=== PATIENT | female | born 1955 | race African-American/Black ===

== ENCOUNTER 2016-09-29 01:31 | Emergency (ER) | payer MEDICARE, MEDICAID ==
[~2016-09-29] VITALS: Ht 167.6 cm; Wt 116.6 kg
[~2016-09-29 01:31] MED LIST: CATAPRES0.1 MG ORAL; DILTIAZEM 24HR120 M1 ORAL; IBUPROFEN600 MG ORAL; NAPHCON-A EYE D15 ML OP; NORCO 5-325 TA1 EACH ORAL; TRIAMTERENE-HC1 EAC6 ORAL
[2016-09-29 01:45] VITALS: BP 154/91
[2016-09-29 02:45] LABS: EOSINOPHILS % (AUTO) 1.4 % (0.0-3.0); LYMPHOCYTES % (AUTO) 16.1 % (20.0-45.0); MEAN CORPUSCULAR HEMOGLOBIN 28.7 PG (27.0-31.0); MEAN CORPUSCULAR HGB CONC 32.1 G/DL (32.0-36.0); MEAN CORPUSCULAR VOLUME 89 FL (80-99); MEAN PLATELET VOLUME 7.2 FL (6.5-10.1); MONOCYTES % (AUTO) 4.7 % (1.0-10.0); NEUTROPHILS % (AUTO) 76.8 % (45.0-75.0); PLATELET COUNT 349 K/UL (150-450); RED BLOOD COUNT 4.68 M/UL (4.20-5.40); RED CELL DISTRIBUTION WIDTH 13.2 % (11.6-14.8); WHITE BLOOD COUNT 10.7 K/UL (4.8-10.8)
[2016-09-29 02:53] LABS: APPEARANCE,URINE CLEAR; KETONES,URINE NEGATIVE (NEGATIVE); NITRITE,URINE NEGATIVE (NEGATIVE); PH,URINE 5 (4.5-8.0); PROTEIN,URINE 2+ (NEGATIVE); UROBILINOGEN,URINE NORMAL MG/DL (0.0-1.0)
[2016-09-29] MEDS ORDERED: DILTIAZEM HCL120 MG PO (03:00)
[2016-09-29] MEDS ORDERED: TENORMIN25 MG ORAL (03:00)
[2016-09-29 03:03] LABS: ANION GAP 13 (5-15); BACTERIA,URINE FEW /HPF; CALCIUM 9.2 mg/dL (8.6-10.2); CARBON DIOXIDE 27 mEQ/L (20-30); CHLORIDE 100 mEQ/L (98-107); CREATININE 0.9 mg/dL (0.5-0.9); GLOMERULAR FILTRATION RATE > 60 mL/min (>60); HEMOLYSIS 5; LEUKOCYTE ESTERASE ,URINE 1+ (NEGATIVE); POTASSIUM 3.2 mEQ/L (3.4-4.9); RBC,URINE 0-2 /HPF (0 - 2); SODIUM 140 mEQ/L (135-145); SQUAMOUS EPITHELIAL CELL,UR FEW /LPF (NONE/OCC)
[2016-09-29] MEDS ORDERED: ATENOLOL25 MG ORAL (03:23)
[2016-09-29] MEDS ORDERED: LOSARTAN POTASS50 MG ORAL (03:23)
--- NOTE | 2016-09-29 03:23 | Emergency Room Report ---
History of Present Illness General Chief Complaint: Hypertension Source: Patient Present Illness HPI Is a 61-year-old female with history hypertension. She was on clonidine, atenolol, diltiazem. Her new doctor tell her that she did not take clonidine atenolol at the same time. She stopped her clonidine. This occurred last week. She presents today because her blood pressure was high. She could not measured at home. She went to the grocery and it was elevated. She came here. She denies any symptoms. No headache. No nausea no vomiting. no chest pain. Allergies: Coded Allergies: AMOXICILLIN (Verified Allergy, 07/27/13) Patient History Past Medical History: see triage record, old chart reviewed, HTN Past Surgical History: other Pertinent Family History: none Social History: Denies: smoking Last Menstrual Period: Menopause Now: No Immunizations: other Reviewed Nursing Documentation: PMH: Agreed, PSxH: Agreed Nursing Documentation-PMH Past Medical History: No History, Except For Hx Hypertension: Yes Hx Diabetes: Yes - Pre-diabetic Review of Systems Eye: Denies: blurred vision, eye pain ENT: Denies: ear pain, nose congestion, throat swelling Respiratory: Denies: cough, shortness of breath Cardiovascular: Denies: chest pain, palpitations Gastrointestinal: Denies: abdominal pain, diarrhea, nausea, vomiting Musculoskeletal: Denies: back pain, joint pain Skin: Denies: rash Neurological: Denies: headache, numbness Endocrine: Denies: increased thirst, increased urine Hematologic/Lymphatic: Denies: easy bruising All Other Systems: negative except mentioned in HPI Physical Exam Vital Signs Date Time Temp Pulse Resp B/P Pulse Ox O2 Delivery O2 Flow Rate FiO2 09/29/16 01:40 97.9 92 15 188/116 99 Room Air vitals with hypertension Sp02 EP Interpretation: reviewed, normal General Appearance: well appearing, no apparent distress, alert Head: normocephalic, atraumatic Eyes: bilateral eye EOMI, bilateral eye PERRL ENT: hearing grossly normal, normal pharynx Neck: full range of motion, supple, no meningismus Respiratory: chest non-tender, lungs clear, normal breath sounds Cardiovascular #1: regular rate, rhythm, no murmur Gastrointestinal: normal bowel sounds, non tender, no mass, no organomegaly, no bruit, non-distended Musculoskeletal: back normal, gait/station normal, normal range of motion Psychiatric: mood/affect normal Skin: warm/dry Medical Decision Making Diagnostic Impression: Primary Impression: Hypertension Qualified Codes: I10 - Essential (primary) hypertension Additional Impression: Proteinuria Qualified Codes: R80.9 - Proteinuria, unspecified ER Course Patient presents with hypertension. With a larger cuff her blood pressures been running systolic 1 5160 year. She is asymptomatic. She does have proteinuria and would benefit from an KHIA inhibitor or an ARBs. Her heart rate was in the 60s so we'll not increase the beta burak. We'll discharge home. Lab Results Impression labs unremarkable Last Vital Signs Date Time Temp Pulse Resp B/P Pulse Ox O2 Delivery O2 Flow Rate FiO2 09/29/16 01:50 71 16 Room Air 09/29/16 01:45 97.9 154/91 99 Status: improved Disposition: HOME, SELF-CARE Condition: Stable Scripts Losartan Potassium* (LOSARTAN POTASSIUM*) 50 Mg Tablet 50 MG ORAL DAILY, #90 TAB Prov: MANJIT WOODARD M.D. 09/29/16 Atenolol* (TENORMIN*) 25 Mg Tablet 25 MG ORAL DAILY, #90 TAB Prov: MANJIT WOODARD M.D. 09/29/16 Referrals: NON PHYSICIAN (PCP) Patient Instructions: High Blood Pressure (Hypertension) Additional Instructions: Followup with your DrCj within a week. Return if symptom worsen. MANJIT WOODARD M.D. Sep 29, 2016 03:23
[2016-09-29 03:45] VITALS: BP 151/88
[2016-09-29 03:56] VITALS: BP 151/88
== END 2016-09-29 03:59 | disposition home or self-care (01) ==
LOC: EMR 02:02
DX: I10 Essential (primary) hypertension (principal); R80.9 Proteinuria, unspecified; Z79.899 Other long term (current) drug therapy; Z88.0 Allergy status to penicillin
CPT/HCPCS: 36415; 80048; 81001; 85025; 99284

== ENCOUNTER 2016-10-05 03:17 | Emergency (ER) | payer MEDICARE, MEDICAID ==
[~2016-10-05] VITALS: Ht 167.6 cm; Wt 117.5 kg
[~2016-10-05 03:17] MED LIST changes: +ATENOLOL25 MG ORAL; +DILTIAZEM HCL120 MG PO; +LOSARTAN POTASS50 MG ORAL; +TENORMIN25 MG ORAL
[2016-10-05] MEDS ORDERED: NAPROXEN500 M2 ORAL (03:30)
--- NOTE | 2016-10-05 03:37 | Emergency Room Report ---
History of Present Illness General Chief Complaint: Hypertension Source: Patient Present Illness HPI This is a 61-year-old female with history hypertension. I saw her last week and labs were normal. She was started on losartan 50 mg. Throat continue with her atenolol 25 mg and diltiazem 240 mg. She present today with chief complaint of elevated blood pressure. Systolic blood pressure was 190. She'll be took half of her atenolol today. Denies any fever chills denies any nausea vomiting. The demented better nothing made it worse. No headache. No nausea no vomiting. No chest pain. No short of breath. No hematuria. Allergies: Coded Allergies: AMOXICILLIN (Verified Allergy, 07/27/13) Patient History Past Medical History: see triage record, old chart reviewed, HTN Past Surgical History: other Pertinent Family History: none Social History: Denies: smoking Last Menstrual Period: NOT ANYMORE Now: No Immunizations: other Reviewed Nursing Documentation: PMH: Agreed, PSxH: Agreed Nursing Documentation-PMH Hx Hypertension: Yes Hx Diabetes: Yes - Pre-diabetic Review of Systems Eye: Denies: blurred vision, eye pain ENT: Denies: ear pain, nose congestion, throat swelling Respiratory: Denies: cough, shortness of breath Cardiovascular: Denies: chest pain, palpitations Gastrointestinal: Denies: abdominal pain, diarrhea, nausea, vomiting Musculoskeletal: Denies: back pain, joint pain Skin: Denies: rash Neurological: Denies: headache, numbness Endocrine: Denies: increased thirst, increased urine Hematologic/Lymphatic: Denies: easy bruising All Other Systems: negative except mentioned in HPI Physical Exam Vital Signs Date Time Temp Pulse Resp B/P Pulse Ox O2 Delivery O2 Flow Rate FiO2 10/05/16 03:22 98.2 70 18 177/111 98 Room Air vitals with htn Sp02 EP Interpretation: reviewed, normal General Appearance: well appearing, no apparent distress, alert Head: normocephalic, atraumatic Eyes: bilateral eye EOMI, bilateral eye PERRL ENT: hearing grossly normal, normal pharynx Neck: full range of motion, supple, no meningismus Respiratory: chest non-tender, lungs clear, normal breath sounds Cardiovascular #1: regular rate, rhythm, no murmur Gastrointestinal: normal bowel sounds, non tender, no mass, no organomegaly, no bruit, non-distended Musculoskeletal: back normal, gait/station normal, normal range of motion Psychiatric: mood/affect normal Skin: warm/dry Medical Decision Making Diagnostic Impression: Primary Impression: Hypertension Qualified Codes: I10 - Essential (primary) hypertension ER Course Patient with high blood pressure. No evidence of end organ damage. Last Vital Signs Date Time Temp Pulse Resp B/P Pulse Ox O2 Delivery O2 Flow Rate FiO2 10/05/16 03:34 70 18 Room Air 10/05/16 03:22 98.2 177/111 98 Status: improved Disposition: HOME, SELF-CARE Condition: Stable Patient Instructions: High Blood Pressure (Hypertension) Additional Instructions: Increase your Losartan to 2 tablets in the morning. Continue with your Diltiazem and Atenolol. Follow up with your doctor in 7 days for recheck. Return if worse. MANJIT WOODARD M.D. October 05, 2016 03:37
[2016-10-05] MEDS ORDERED: Tubing IV Secondary IV ONE (03:47)
[2016-10-05 04:55] VITALS: BP 180/90
[2016-10-05 05:44] VITALS: BP 180/90
== END 2016-10-05 05:45 | disposition home or self-care (01) ==
LOC: EMR 03:46
DX: I10 Essential (primary) hypertension (principal); R73.03 Prediabetes; Z88.0 Allergy status to penicillin
CPT/HCPCS: 99282

== ENCOUNTER 2017-02-06 00:19 | Emergency (ER) | payer MEDICARE, MEDICAID ==
[~2017-02-06] VITALS: Ht 167.6 cm; Wt 113.4 kg
[~2017-02-06 00:19] MED LIST changes: +NAPROXEN500 M2 ORAL
[2017-02-06] MEDS ORDERED: CHLORTHALIDONE25 MG ORAL (00:26)
[2017-02-06] MEDS ORDERED: NS 275ml ONE (00:51)
[2017-02-06 01:57] VITALS: BP 125/67
[2017-02-06 02:04] LABS: BASOPHILS % (AUTO) 1.1 % (0.0-2.0); EOSINOPHILS % (AUTO) 2.8 % (0.0-3.0); LYMPHOCYTES % (AUTO) 33.5 % (20.0-45.0); MEAN CORPUSCULAR HEMOGLOBIN 30.2 PG (27.0-31.0); MEAN CORPUSCULAR HGB CONC 32.6 G/DL (32.0-36.0); MEAN CORPUSCULAR VOLUME 93 FL (80-99); MEAN PLATELET VOLUME 7.4 FL (6.5-10.1); MONOCYTES % (AUTO) 8.2 % (1.0-10.0); NEUTROPHILS % (AUTO) 54.4 % (45.0-75.0); PLATELET COUNT 376 K/UL (150-450); RED BLOOD COUNT 4.71 M/UL (4.20-5.40); RED CELL DISTRIBUTION WIDTH 12.4 % (11.6-14.8)
[2017-02-06] MEDS ORDERED: CALCIUM GLUCONATE IVPB ONE (02:15)
[2017-02-06] MEDS ORDERED: NS IVPB ONE (02:15)
[2017-02-06] MEDS ORDERED: Atropine Sulfate 0.4mg/ml inj 20ML IVP ONE (02:15)
[2017-02-06 02:19] LABS: ALANINE AMINOTRANSFERASE 12 U/L (3-33); ANION GAP 11 (5-15); ASPARTATE AMINO TRANSFERASE 18 U/L (5-40); CALCIUM 9.5 mg/dL (8.6-10.2); CARBON DIOXIDE 31 mEQ/L (20-30); CHLORIDE 98 mEQ/L (98-107); GLOMERULAR FILTRATION RATE > 60 mL/min (>60); HEMOLYSIS 2; SODIUM 140 mEQ/L (135-145); TOTAL PROTEIN 8.1 g/dL (6.6-8.7)
[2017-02-06 02:20] LABS: TROPONIN I < 0.30 ng/mL (<=0.30)
[2017-02-06 02:29] LABS: CKMB 1.7 ng/mL (< 3.8)
[2017-02-06] MEDS ORDERED: Calcium Gluconate 1gm/10ml vial ONE ×2 (02:39→02:43)
[2017-02-06] MEDS ORDERED: KCl 10% 40mEq/30ml liquid ORAL ONE (02:45)
[2017-02-06] MEDS ORDERED: Atropine Inj 1mg/10ml Syr IVP ONE (02:45)
--- NOTE | 2017-02-06 03:27 | Emergency Room Report ---
History of Present Illness General Chief Complaint: Overdose Source: Patient Present Illness HPI 62YOF walked in with dizziness after accidentally taking 2 extra doses of HTN medications, including diltizaem Took Atenolol as prescribed tonight at 10pm for second dose Denies chest pain, SOB, abd pain, headache, fever/chills Asymptomatic at time of MD evaluation Allergies: Coded Allergies: AMOXICILLIN (Verified Allergy, 07/27/13) Patient History Past Medical History: HTN Past Surgical History: none Pertinent Family History: none Social History: Denies: smoking, alcohol use, drug use Last Menstrual Period: NA Now: No Immunizations: UTD Reviewed Nursing Documentation: PMH: Agreed, PSxH: Agreed Nursing Documentation-PMH Hx Hypertension: Yes Hx Diabetes: Yes - Pre-diabetic Review of Systems All Other Systems: negative except mentioned in HPI Physical Exam Vital Signs Date Time Temp Pulse Resp B/P (MAP) Pulse Ox O2 Delivery O2 Flow Rate FiO2 02/06/17 00:24 97.9 67 18 177/100 98 02/06/17 00:46 Room Air Sp02 EP Interpretation: reviewed, normal General Appearance: normal inspection, well appearing, no apparent distress, alert, GCS 15, non-toxic Head: normocephalic, atraumatic Eyes: bilateral eye PERRL, bilateral eye EOMI ENT: normal ENT inspection, hearing grossly normal, normal voice Neck: normal inspection, full range of motion, supple, no bony tend Respiratory: normal inspection, lungs clear, normal breath sounds, no respiratory distress, no retraction, no wheezing Cardiovascular #1: no edema, no gallop, no JVD, bradycardia Gastrointestinal: normal inspection, normal bowel sounds, non tender, soft, no guarding, no hernia Genitourinary: no CVA tenderness Musculoskeletal: normal inspection, back normal, normal range of motion, Ramiro' s Sign negative Neurologic: normal inspection, alert, oriented x3, responsive, agricultural loan officer III-XII nml as tested, motor strength/tone normal, speech normal Psychiatric: normal inspection, judgement/insight normal, mood/affect normal Skin: normal inspection, normal color, no rash Medical Decision Making Medicare Attestation I Marisa Ortega MD hereby attest that the medical record entry for date of service, 02/06/17 accurately reflects signatures/notations that I made in my capacity as MD when I treated/diagnosed the above listed Medicare beneficiary. I attest that this information is true, accurate and complete to the best of my knowledge. I understand that any falsification, omission, or concealment of material fact may subject me to administrative, civil, or criminal liability. This patient warrants hospital admission for extreme of age and has a condition that cannot be treated as outpatient. Diagnostic Impression: Primary Impression: Drug overdose Qualified Codes: T50.901A - Poisoning by unspecified drugs, medicaments and biological substances, accidental (unintentional), initial encounter Additional Impressions: Bradycardia Calcium channel burak overdose Qualified Codes: T46.1X1A - Poisoning by calcium-channel blockers, accidental (unintentional), initial encounter Hypokalemia ER Course VS with bradycardia, asymptomatic. Trended down to 30s Was given IV Calcium 3grams and Atropine for suspected CCB and possible beta- burak unintentional OD Labs reviewed, mild HypoK was repleted ECG with TWI in anterior leads. Troponin 0 x2 Improved HR after meds Observed patient overnight for many hours, remained asymptomatic Remained stable in ED Had long discussion with patient about risks/benefits of being admitted. In shared decision making she opted to go home/be discharged with plan to STOP atenolol but continue other BP meds including cardizem. She has PMD appointment this week on but will call today to schedule as soon as possible to discuss with doctor possibility of changing BP medication regimen. She lives close by and understands importance of coming back to ED for recurrent symptoms including dizziness, chest pain, SOB. Patient ambulated out of ED with steady gait, on her own power. DC home EKG Diagnostic Results Rate: bradycardiac Rhythm: NSR ST Segments: other - TWI in v2-3 ASA given to the pt in ED: No Rhythm Strip Diag. Results EP Interpretation: yes Rate: 52 Rhythm: NSR, no PVC's, no ectopy Last Vital Signs Date Time Temp Pulse Resp B/P (MAP) Pulse Ox O2 Delivery O2 Flow Rate FiO2 02/06/17 01:57 49 24 125/67 100 Room Air 02/06/17 00:24 97.9 Status: improved Disposition: HOME, SELF-CARE Condition: Improved Referrals: [facility],REFERRING (PCP) MARISA ORTEGA M.D. Feb 06, 2017 03:27
[2017-02-06 03:59] VITALS: BP 120/79
[2017-02-06 05:03] LABS: TROPONIN I < 0.30 ng/mL (<=0.30)
[2017-02-06 05:37] VITALS: BP 131/73
[2017-02-06 06:19] VITALS: BP 131/73
--- NOTE | 2017-02-06 12:31 | Diagnostic Imaging Report ---
Indication: SOB Technique: One view of the chest Comparison: none Findings: Lungs and pleural spaces are probably clear, but some retrocardiac consolidation cannot completely the ruled out. The heart is upper limits normal in size. Impression: No definite acute process
== END 2017-02-06 06:25 | disposition home or self-care (01) ==
LOC: EMR 00:50
DX: T46.1X1A Poisoning by calcium-channel blockers, accidental (unintentional), initial encounter (principal); R00.1 Bradycardia, unspecified; E87.6 Hypokalemia; I10 Essential (primary) hypertension; R73.03 Prediabetes; Z88.1 Allergy status to other antibiotic agents; Y92.9 Unspecified place or not applicable
CPT/HCPCS: 36415; 71010; 80053; 82550; 82553; 84484; 85025; 93005; 96365; 96374; 96375; 99284; J0610; J7050

== ENCOUNTER 2017-08-13 20:54 | Emergency (ER) | payer MEDICARE, MEDICAID ==
[~2017-08-13] VITALS: Ht 167.6 cm; Wt 108.9 kg
[~2017-08-13 20:54] MED LIST changes: +CHLORTHALIDONE25 MG ORAL
[2017-08-13] MEDS ORDERED: ASPIRIN81 MG ORAL (21:06)
[2017-08-13 22:27] VITALS: BP 163/85
--- NOTE | 2017-08-13 22:37 | Emergency Room Report ---
History of Present Illness General Chief Complaint: Vaginal Source: Patient Present Illness HPI 62-year-old female presents ED. States that she notes a "white ball" that she noticed in her vagina tonight. Noticed it while urinating. States there is some pressure and discomfort. Denies any discharge. Denies any fevers or chills. Denies dysuria or hematuria. No other aggravating or relieving factors. Denies any other associated symptoms Allergies: Coded Allergies: AMOXICILLIN (Verified Allergy, 07/27/13) Patient History Past Medical History: DM, HTN Past Surgical History: none Pertinent Family History: none Social History: Denies: smoking, alcohol use, drug use Last Menstrual Period: Hysterectomy Now: No Immunizations: UTD Reviewed Nursing Documentation: PMH: Agreed, PSxH: Agreed Nursing Documentation-PMH Past Medical History: No History, Except For Hx Hypertension: Yes Hx Diabetes: Yes - Pre-diabetic Review of Systems All Other Systems: negative except mentioned in HPI Physical Exam Vital Signs Date Time Temp Pulse Resp B/P (MAP) Pulse Ox O2 Delivery O2 Flow Rate FiO2 08/13/17 21:00 98.7 90 16 163/85 99 Room Air 98.8 Sp02 EP Interpretation: reviewed, normal General Appearance: no apparent distress, alert, GCS 15, non-toxic Head: normocephalic, atraumatic Eyes: bilateral eye normal inspection, bilateral eye PERRL ENT: hearing grossly normal, normal pharynx, no angioedema, normal voice Neck: full range of motion, supple/symm/no masses Respiratory: chest non-tender, lungs clear, normal breath sounds, speaking full sentences Cardiovascular #1: regular rate, rhythm, no edema Cardiovascular #2: 2+ carotid (R), 2+ carotid (L), 2+ radial (R), 2+ radial (L) , 2+ dorsalis pedis (R), 2+ dorsalis pedis (L) Gastrointestinal: normal bowel sounds, non tender, soft, non-distended, no guarding, no rebound Rectal: deferred Genitourinary: normal inspection, no CVA tenderness, ext genitalia/vag normal, other - song lyricist present Musculoskeletal: back normal, gait/station normal, normal range of motion, non- tender Neurologic: alert, oriented x3, responsive, motor strength/tone normal, sensory intact, speech normal Psychiatric: judgement/insight normal, memory normal, mood/affect normal, no suicidal/homicidal ideation Reflexes: 3+ bicep (R), 3+ bicep (L), 3+ tricep (R), 3+ tricep (L), 3+ knee (R) , 3+ knee (L) Skin: normal color, no rash, warm/dry, well hydrated Lymphatic: no adenopathy Medical Decision Making Diagnostic Impression: Primary Impression: Vaginal infection ER Course Hospital Course 62 yo F presents c/o pain/swelling to vagina Differential diagnoses include: Cellulitis, dermatitis, insect bite, abscess Clinical course Patient placed on stretcher. After initial history, physical exam reveals an elderly female in no acute distress. There is no evidence of fluctuance or abscess. No discharge. I asked patient to point to where she felt the swelling and she no longer feels the swelling at this time At this point no further intervention required. However I encouraged patient for warm sitz baths and to return if symptoms resume. However otherwise recommend close follow-up with [facility] Diagnosis - Vaginal infection stable and discharged to home. Sitz baths. Instructed to followup with OBGYN. Instructed return to ED if symptoms recur or worsen Last Vital Signs Date Time Temp Pulse Resp B/P (MAP) Pulse Ox O2 Delivery O2 Flow Rate FiO2 08/13/17 21:00 98.7 90 16 163/85 99 Room Air 98.8 Status: improved Disposition: HOME, SELF-CARE Condition: Stable Referrals: NON PHYSICIAN (PCP) Patient Instructions: How to Take a Sitz Bath NANCY NEWTON M.D. Aug 13, 2017 22:37
== END 2017-08-13 22:29 | disposition home or self-care (01) ==
LOC: EMR 21:30
DX: N76.0 Acute vaginitis (principal); Z88.1 Allergy status to other antibiotic agents; I10 Essential (primary) hypertension; R73.03 Prediabetes; Z90.710 Acquired absence of both cervix and uterus
CPT/HCPCS: 99282

== ENCOUNTER 2018-10-01 20:18 | Emergency (ER) | payer MEDICARE, MEDICAID ==
[~2018-10-01] VITALS: Ht 167.6 cm; Wt 115.7 kg
[~2018-10-01 20:18] MED LIST changes: +ASPIRIN81 MG ORAL
[2018-10-01 20:30] VITALS: BP 162/106
--- NOTE | 2018-10-01 20:30 | NUR ---
ED Nurse Note: Patient walk in c/o heart palpitations for 4 days, throbbing and pain in bilateral legs for 3 weeks. Pt is AO x 4times, VSS, on room air no distress. ERMD seen Pt at bedside.
--- NOTE | 2018-10-01 21:08 | NUR ---
ED Nurse Note: Blood and urine sample sent to lab.
[2018-10-01 21:17] LABS: BASOPHILS % (AUTO) 1.5 % (0.0-2.0); EOSINOPHILS % (AUTO) 0.7 % (0.0-3.0); HEMATOCRIT 40.5 % (37.0-47.0); HEMOGLOBIN 13.3 G/DL (12.0-16.0); LYMPHOCYTES % (AUTO) 24.7 % (20.0-45.0); MEAN CORPUSCULAR VOLUME 87 FL (80-99); MONOCYTES % (AUTO) 6.7 % (1.0-10.0); NEUTROPHILS % (AUTO) 66.5 % (45.0-75.0); PLATELET COUNT 381 K/UL (150-450); RED BLOOD COUNT 4.66 M/UL (4.20-5.40); RED CELL DISTRIBUTION WIDTH 12.3 % (11.6-14.8); WHITE BLOOD COUNT 11.7 K/UL (4.8-10.8)
[2018-10-01 21:33] LABS: ANION GAP 8 mmol/L (5-15); BLOOD UREA NITROGEN 12 mg/dL (7-18); CALCIUM 9.4 MG/DL (8.5-10.1); CARBON DIOXIDE 32 MMOL/L (21-32); CHLORIDE 101 MMOL/L (98-107); CREATININE 0.9 MG/DL (0.55-1.30); POTASSIUM 2.8 MMOL/L (3.5-5.1); SODIUM 141 MMOL/L (136-145)
[2018-10-01 21:45] LABS: ALANINE AMINOTRANSFERASE 23 U/L (12-78); ALBUMIN 3.8 G/DL (3.4-5.0); ALBUMIN/GLOBULIN RATIO 0.7 (1.0-2.7); ALKALINE PHOSPHATASE 78 U/L (46-116); ASPARTATE AMINO TRANSFERASE 22 U/L (15-37); BILIRUBIN,TOTAL 0.6 MG/DL (0.2-1.0); CKMB 1.7 NG/ML (0.0-3.6); CREATINE KINASE 145 U/L (26-308)
[2018-10-01] MEDS ORDERED: POTASSIUM CHLO10 MEQ ORAL (22:05)
--- NOTE | 2018-10-01 22:26 | Emergency Room Report ---
History of Present Illness General Chief Complaint: Palpitations Source: Patient Present Illness HPI Patient is a 63-year-old female presented after increased rapid heartbeat. Patient states that she had intermittent episodes which woke her from sleep. Patient reports having increased bilateral foot pain. Patient been attempting to lose weight. She been taking medications for blood pressure in the past. She was noted to have prior history of borderline diabetes. She denies any prior cardiac conditions. Patient states that she is not a smoker. Allergies: Coded Allergies: AMOXICILLIN (Verified Allergy, 07/27/13) Patient History Past Medical History: see triage record Last Menstrual Period: WILL Now: No Reviewed Nursing Documentation: PMH: Agreed; PSxH: Agreed Nursing Documentation-PMH Past Medical History: No History, Except For Hx Hypertension: Yes Hx Diabetes: Yes - Pre-diabetic Review of Systems All Other Systems: negative except mentioned in HPI Physical Exam Vital Signs Date Time Temp Pulse Resp B/P (MAP) Pulse Ox O2 Delivery O2 Flow Rate FiO2 10/01/18 20:26 98.4 80 16 162/106 97 Room Air Sp02 EP Interpretation: reviewed, normal General Appearance: normal inspection, well appearing, no apparent distress, alert, GCS 15, obese Head: atraumatic ENT: normal ENT inspection, hearing grossly normal, normal voice Neck: normal inspection, full range of motion, supple, no bony tend Respiratory: normal inspection, lungs clear, normal breath sounds, no respiratory distress, no retraction, no wheezing Cardiovascular #1: regular rate, rhythm, no edema Gastrointestinal: normal inspection, normal bowel sounds, non tender, soft, no guarding, no hernia Genitourinary: no CVA tenderness Musculoskeletal: normal inspection, back normal, normal range of motion Neurologic: normal inspection, alert, oriented x3, responsive, fern picker III-XII nml as tested, motor strength/tone normal, speech normal Psychiatric: normal inspection, judgement/insight normal, mood/affect normal Skin: normal inspection, normal color, no rash Medical Decision Making Diagnostic Impression: Primary Impression: Hypokalemia Additional Impression: Palpitations ER Course . Patient presented for palpitations. The differential diagnosis included was not limited to arrhythmia, thyroid storm, sepsis, anemia, myocardial infarction , alcohol withdrawal, stimulant abuse, caffeine overdose among others. Patient has a benign exam and does not appear to require any further imaging or laboratory testing at this time. Patient's laboratory testing showed some evidence of hypokalemia. Patient given oral potassium replacement. She does not appear to be in any distress. EKG interpreted by me showed normal sinus rhythm with a rate of [address] or T wave changes.Patient was advised follow-up with her primary care physician 1 to 2 days. She is advised to return if she had any concerns. Labs Test 10/01/18 21:00 10/01/18 21:08 Urine Opiates Screen Negative (NEGATIVE) Urine Barbiturates Screen Negative (NEGATIVE) Phencyclidine (PCP) Screen Negative (NEGATIVE) Urine Amphetamines Screen Negative (NEGATIVE) Urine Benzodiazepines Screen Negative (NEGATIVE) Urine Cocaine Screen Negative (NEGATIVE) Urine Marijuana (THC) Screen Negative (NEGATIVE) White Blood Count 11.7 K/UL (4.8-10.8) Red Blood Count 4.66 M/UL (4.20-5.40) Hemoglobin 13.3 G/DL (12.0-16.0) Hematocrit 40.5 % (37.0-47.0) Mean Corpuscular Volume 87 FL (80-99) Mean Corpuscular Hemoglobin 28.5 PG (27.0-31.0) Mean Corpuscular Hemoglobin Concent 32.8 G/DL (32.0-36.0) Red Cell Distribution Width 12.3 % (11.6-14.8) Platelet Count 381 K/UL (150-450) Mean Platelet Volume 6.2 FL (6.5-10.1) Neutrophils (%) (Auto) 66.5 % (45.0-75.0) Lymphocytes (%) (Auto) 24.7 % (20.0-45.0) Monocytes (%) (Auto) 6.7 % (1.0-10.0) Eosinophils (%) (Auto) 0.7 % (0.0-3.0) Basophils (%) (Auto) 1.5 % (0.0-2.0) Sodium Level 141 MMOL/L (136-145) Potassium Level 2.8 MMOL/L (3.5-5.1) Chloride Level 101 MMOL/L (98-107) Carbon Dioxide Level 32 MMOL/L (21-32) Anion Gap 8 mmol/L (5-15) Blood Urea Nitrogen 12 mg/dL (7-18) Creatinine 0.9 MG/DL (0.55-1.30) Estimat Glomerular Filtration Rate > 60 mL/min (>60) Glucose Level 98 MG/DL (74-106) Calcium Level 9.4 MG/DL (8.5-10.1) Total Bilirubin 0.6 MG/DL (0.2-1.0) Aspartate Amino Transf (AST/SGOT) 22 U/L (15-37) Alanine Aminotransferase (ALT/SGPT) 23 U/L (12-78) Alkaline Phosphatase 78 U/L (46-116) Total Creatine Kinase 145 U/L (26-308) Creatine Kinase MB 1.7 NG/ML (0.0-3.6) Creatine Kinase MB Relative Index 1.1 Troponin I 0.000 ng/mL (0.000-0.056) Pro-B-Type Natriuretic Peptide 136 pg/mL (0-125) Total Protein 8.9 G/DL (6.4-8.2) Albumin 3.8 G/DL (3.4-5.0) Globulin 5.1 g/dL Albumin/Globulin Ratio 0.7 (1.0-2.7) Lipase 153 U/L (73-393) Last Vital Signs Date Time Temp Pulse Resp B/P (MAP) Pulse Ox O2 Delivery O2 Flow Rate FiO2 10/01/18 20:30 98.4 86 16 162/106 97 Room Air Status: improved Disposition: HOME, SELF-CARE Condition: Stable Scripts Potassium Chloride* (K-DUR*) 10 Meq Capsule.er 10 MEQ ORAL DAILY, #4 TAB 0 Refills Prov: Kit Guallpa MD 10/01/18 Patient Instructions: Palpitations Kit Guallpa MD Oct 01, 2018 22:26
[2018-10-01 22:32] VITALS: BP 124/82
[2018-10-01 22:33] VITALS: BP 124/82
--- NOTE | 2018-10-01 22:33 | NUR ---
ER DISCHARGE NOTE: Patient is cleared to be discharged per ERMD, pt is aox4, on room air, with stable vital signs. pt was given dc and prescription instructions, pt was able to verbalize understanding, pt id band and iv site removed without complications. pt is able to ambulate with steady gait. pt took all belongings.
--- NOTE | 2018-10-02 12:44 | Diagnostic Imaging Report ---
Indication: Chest pain Technique: One view of the chest Comparison: 02/06/2017 Findings: Lungs and pleural space are clear. The heart is borderline enlarged. No significant interim change Impression: No acute process Borderline cardiomegaly
== END 2018-10-01 23:30 | disposition home or self-care (01) ==
LOC: EMR 20:42
DX: R00.2 Palpitations (principal); E87.6 Hypokalemia; M25.572 Pain in left ankle and joints of left foot; M25.571 Pain in right ankle and joints of right foot; Z88.0 Allergy status to penicillin; R73.03 Prediabetes; I10 Essential (primary) hypertension; E66.9 Obesity, unspecified; Z68.41 Body mass index [BMI] 40.0-44.9, adult
CPT/HCPCS: 36415; 71045; 80053; 80307; 82550; 82553; 83690; 83880; 84484; 85025; 93005; 99283; J8499

== ENCOUNTER 2018-12-02 11:38 | Emergency (ER) | payer OTHER, MEDICAID ==
[~2018-12-02] VITALS: Ht 167.6 cm; Wt 113.4 kg
[~2018-12-02 11:38] MED LIST changes: +POTASSIUM CHLO10 MEQ ORAL
--- NOTE | 2018-12-02 12:00 | NUR ---
ED Nurse Note: PT WALKED IN TO ER TODAY FROM HOME. AOX4. PT C/O VAGINAL PAIN, 810 X THIS AM. PT DENIES VAGINAL SWELLING, DISCHARGE, ODOR, REDNESS, ITCHING, BLEEDING. PT DENIES DIFFICULTY URINATING AND PAINFUL URINATION. PT DENIES INCREASE IN URINARY FREQUENCY OR URGENCY.
[2018-12-02 12:01] VITALS: BP 146/96
[2018-12-02 12:26] LABS: APPEARANCE,URINE CLEAR; BILIRUBIN, URINE NEGATIVE (NEGATIVE); COLOR,URINE PALE YELLOW; GLUCOSE, URINE (UA) NEGATIVE (NEGATIVE); KETONES,URINE NEGATIVE (NEGATIVE); LEUKOCYTE ESTERASE ,URINE 2+ (NEGATIVE); NITRITE,URINE NEGATIVE (NEGATIVE); PH,URINE 8 (4.5-8.0); PROTEIN,URINE NEGATIVE (NEGATIVE); UROBILINOGEN,URINE NORMAL MG/DL (0.0-1.0)
[2018-12-02 12:44] VITALS: BP 149/90
--- NOTE | 2018-12-02 12:44 | NUR ---
ED Nurse Note: PT LAYING PEACEFULLY IN BED IN NAD. AOX4. DISCHARGE PAPERWORK EXPLAINED TO PT. PT VERBALIZES UNDERSTANDING AND ALL QUESTIONS ANSWERED. DISCHARGE PAPERWORK GIVEN TO PT AND ID WRISTBAND REMOVED. PT WALKED OUT OF ER WITH STEADY GAIT AND ALL BELONGINGS.
--- NOTE | 2018-12-03 06:32 | Emergency Room Report ---
History of Present Illness General Chief Complaint: Vaginal Source: Patient, Medical Record Present Illness HPI Patient presents with initially complaints of UTI however Her main complaint is regarding prolapsed uterus Patient reports that she has been seen at other emergency room's and continues to attempt outpatient follow-up she reports that she has been trying to get a referral for the past 1 year from her physician Denies any abdominal pain denies any dysuria She felt that the prolapse had worsened However reports that when she lays down it resolves and therefore she is standing longer in order to be able to show us the prolapse Allergies: Coded Allergies: AMOXICILLIN (Verified Allergy, Unknown, 12/02/18) Patient History Past Medical History: see triage record Pertinent Family History: none Now: No Reviewed Nursing Documentation: PMH: Agreed; PSxH: Agreed Nursing Documentation-PMH Hx Hypertension: Yes Hx Diabetes: Yes - Pre-diabetic Review of Systems All Other Systems: negative except mentioned in HPI Physical Exam Vital Signs Date Time Temp Pulse Resp B/P (MAP) Pulse Ox O2 Delivery O2 Flow Rate FiO2 12/02/18 11:48 98.2 84 18 151/105 (120) 100 Room Air Sp02 EP Interpretation: reviewed, normal General Appearance: well appearing, no apparent distress Head: normocephalic, atraumatic Eyes: bilateral eye PERRL, bilateral eye EOMI ENT: hearing grossly normal, normal pharynx Neck: full range of motion, supple Respiratory: lungs clear Cardiovascular #1: regular rate, rhythm Gastrointestinal: non tender, soft Genitourinary: other - Patient has evidence of low-grade prolapse the uterus is visible in the vaginal vault however not extending past the vault Musculoskeletal: normal inspection Neurologic: alert, oriented x3, responsive Skin: no rash Lymphatic: no adenopathy Medical Decision Making Diagnostic Impression: Primary Impression: Uterine prolapse ER Course Patient's urine sample does not show any obvious signs of infection given the evaluation of the prolapse no further emergency room Procedures required and patient was encouraged to continue outpatient follow-up Labs Test 12/02/18 12:02 Urine Color Pale yellow Urine Appearance Clear Urine pH 8 (4.5-8.0) Urine Specific [place] 1.005 (1.005-1.035) Urine Protein Negative (NEGATIVE) Urine Glucose (UA) Negative (NEGATIVE) Urine Ketones Negative (NEGATIVE) Urine Blood Negative (NEGATIVE) Urine Nitrite Negative (NEGATIVE) Urine Bilirubin Negative (NEGATIVE) Urine Urobilinogen Normal MG/DL (0.0-1.0) Urine Leukocyte Esterase 2+ (NEGATIVE) Urine RBC 0-2 /HPF (0 - 2) Urine WBC 0 /HPF (0 - 2) Urine Squamous Epithelial Cells Occasional /LPF Urine Bacteria Occasional /HPF (NONE) Last Vital Signs Date Time Temp Pulse Resp B/P (MAP) Pulse Ox O2 Delivery O2 Flow Rate FiO2 12/02/18 12:44 98.3 76 17 149/90 100 Room Air Status: improved Disposition: HOME, SELF-CARE Condition: Stable Referrals: NON PHYSICIAN (PCP) Patient Instructions: Pelvic Organ Prolapse Additional Instructions: Patient is provided with the discharge instructions notified to follow up with primary doctor in the next 2-3 days otherwise return to the er with any worsening symptoms. Please note that this report is being documented using [employer] technology. This can lead to erroneous entry secondary to incorrect interpretation by the dictating instrument. Moisés Waddell DO Dec 03, 2018 06:32
== END 2018-12-02 12:44 | disposition home or self-care (01) ==
LOC: EMR 12:30
DX: N81.4 Uterovaginal prolapse, unspecified (principal); E11.9 Type 2 diabetes mellitus without complications; I10 Essential (primary) hypertension; Z88.0 Allergy status to penicillin
CPT/HCPCS: 81003; 99283